=== PATIENT | female | born 1965 | race Hispanic/Latino ===

== ENCOUNTER → 2022-11-23 | Outpatient (CLI) | payer BC | END | disposition home or self-care (01) | LOC: RAH 07:53 | PROVIDERS: ATTEND Neurological Surgery | DX: R22.0 Localized swelling, mass and lump, head (principal) | CPT/HCPCS: 70544 ==

== ENCOUNTER 2023-01-14 09:00 | Observation (INO) | payer BC ==
[~2023-01-14] VITALS: Ht 157.5 cm; Wt 86.1 kg
[2023-01-14 10:27] VITALS: BP 143/79
[2023-01-14 10:46] LABS: BASOPHILS % (AUTO) 0.7 % (0.0-5.0); EOSINOPHILS % (AUTO) 5.5 % (0.0-8.0); HEMATOCRIT 40.3 % (36-48); LYMPHOCYTES % (AUTO) 29.1 % (21.0-51.0); MEAN CORPUSCULAR HEMOGLOBIN 30.7 pg (27.0-33.0); MEAN CORPUSCULAR HGB CONC 32.3 g/dL (32.0-36.0); NEUTROPHILS % (AUTO) 54.3 % (40.0-77.0); PLATELET COUNT (AUTO) 245 K/uL (130-400); RED BLOOD CELL COUNT(AUTO) 4.24 MIL/uL (4.00-5.50); RED CELL DISTRIBUTION WIDTH 13.2 % (11.0-15.5); WHITE BLOOD COUNT (AUTO) 5.5 K/uL (4.8-10.8)
[2023-01-14 10:56] LABS: CREATININE 0.7 mg/dL (0.5-1.5); POTASSIUM 4.8 mmol/L (3.5-5.1)
[2023-01-14] MEDS ORDERED: ERGO500093 PO (11:38)
[2023-01-14] MEDS ORDERED: FOLIC ACID PO (11:38)
[2023-01-14] MEDS ORDERED: LISI20TA24 PO (11:38)
[2023-01-14] MEDS ORDERED: GUAI1TBM19 PO (11:38)
[2023-01-14] MEDS ORDERED: CETI10CA5 PO (11:38)
[2023-01-14] MEDS ORDERED: METH2.5T6 PO (11:38)
[2023-01-16] VITALS (17 sets, daily range): BP systolic 103–143; BP diastolic 65–82
[2023-01-16] MEDS ORDERED: CEFAZOLIN SODIUM 1 GM VIAL IVPB SCH (06:00)
[2023-01-16] MEDS ORDERED: CEFAZOLIN SODIUM 1 GM VIAL ONE (06:13)
[2023-01-16] MEDS ORDERED: LACTATED RINGERS 1000ML 1,000 ML IV ONE (06:15)
[2023-01-16] MEDS ORDERED: SUCCINYLCHOLINE CHLORIDE 20 MG/ML 10 ML VIAL ONE (07:01)
[2023-01-16] MEDS ORDERED: PROPOFOL 10 MG/ML 20ML VIAL IV ONE (07:01)
[2023-01-16] MEDS ORDERED: DEXAMETHASONE SOD PHOSPHATE 10MG/ML 1ML VIAL ONE (07:01)
[2023-01-16] MEDS ORDERED: GLYCOPYRROLATE 1 MG/5 ML SYRINGE ONE (07:01)
[2023-01-16] MEDS ORDERED: MIDAZOLAM HCL 1 MG/ML 2ML VIAL ONE (07:01)
[2023-01-16] MEDS ORDERED: LIDOCAINE PF 100MG/5ML (2%) SYRINGE 5ML ONE (07:01)
[2023-01-16] MEDS ORDERED: ROCURONIUM 10MG/1ML SYR 10 MG/ML ML ONE ×2 (07:02→09:15)
[2023-01-16] MEDS ORDERED: FENTANYL CITRATE PF 50 MCG/1 ML 2ML VIAL ONE ×3 (07:02→10:07)
[2023-01-16] MEDS ORDERED: NEOSTIGMINE 5MG/5ML SYR IV ONE (07:02)
[2023-01-16] MEDS ORDERED: ONDANSETRON 4MG INJ ONE ×3 (07:02→13:32)
[2023-01-16] MEDS: BUPIVACAINE/EPI/PF 0.25% 30ML VIAL IJ SCH ×2 (07:30→08:00)
[2023-01-16] MEDS ORDERED: PHENYLEPHRINE HCL 10 MG/ML 1ML VIAL IV ONE (08:12)
[2023-01-16] MEDS ORDERED: EPHEDRINE SULFATE 50 MG/ML AMPULE ONE (08:48)
[2023-01-16] MEDS ORDERED: MEPERIDINE-PF 25 MG/ML SYG ONE ×2 (11:02→11:30)
[2023-01-16] MEDS ORDERED: ADAL40SY SQ (13:02)
[2023-01-16] MEDS: LACTATED RINGERS 1000ML 1,000 ML IV SCH (13:04)
[2023-01-16] MEDS ORDERED: ONDANSETRON 4MG INJ IVP PRN (14:00)
[2023-01-16] MEDS: KETOROLAC 10 MG TABLET PO PRN (15:21)
[2023-01-16] MEDS ORDERED: CEFAZOLIN SODIUM 2 GM VIAL ONE (16:23)
[2023-01-16] MEDS ORDERED: CEFAZOLIN SODIUM 2 GM VIAL IVPB SCH (18:00)
[2023-01-16] MEDS ORDERED: MORPHINE 2 MG SYG IVP PRN (20:30)
[2023-01-17] VITALS: BP 115/56
[2023-01-17] MEDS: LACTATED RINGERS 1000ML 1,000 ML IV SCH (00:03)
[2023-01-17] MEDS: KETOROLAC 10 MG TABLET PO PRN ×2 (03:56→10:23)
[2023-01-17 06:00] VITALS: BP 131/63
[2023-01-17 07:10] VITALS: BP 123/65
== END 2023-01-17 12:50 | disposition home or self-care (01) ==
LOC: EDSTATUS 09:00 → DAHIP 01-16 06:06 → 4DH 01-16 11:55
PROVIDERS: ADMIT Neurological Surgery; ATTEND Neurological Surgery
DX: R22.0 Localized swelling, mass and lump, head (principal); Z20.822 Contact with and (suspected) exposure to COVID-19; D16.4 Benign neoplasm of bones of skull and face; R51.9 Headache, unspecified; Z90.710 Acquired absence of both cervix and uterus; Z98.891 History of uterine scar from previous surgery; Z98.51 Tubal ligation status; Z90.49 Acquired absence of other specified parts of digestive tract; Z79.899 Other long term (current) drug therapy
CPT/HCPCS: 80048; 84703; 85025; 87426; 36415; 71045; 93005; 21030; 96376; 96365; 96375; 82948; A6260; G0378 ×25; G0379; A4663; J7030; A4606; J7120 ×2; J3010 ×3; J0690 ×3; J3490 ×3; J1100; J2710; J0330; J2001; J2250; J2704; J2405 ×4; J2175 ×2; J2370; A6219; A4215; A4223; A4222; A4221